=== PATIENT | male | born 1935 | race Caucasian/White ===

== ENCOUNTER → 2016-07-15 | Outpatient (CLI) | payer OTHER ==
[~2016-07-15] MED LIST: ALOE VERA5000 MG PO; ASPIRIN81 M2 PO; ATORVASTATIN CA20 MG PO; BILBERRY100 MG PO; CYANOCOBALAM1000 MCG PO; FUROSEMIDE40 MG PO; KLOR-CON M2020 MEQ PO; LASIX20 MG PO; LASIX40 MG PO; LEVAQUIN750 MG PO; LISINOPRIL20 MG PO; LOPRESSOR25 MG PO; MIRALAX255 GM PO; PLAVIX75 MG PO; ROXICODONE5 MG PO; SAW PALMETTO160 MG PO; TYLENOL EXTRA500 MG PO; ZITHROMAX250 MG PO
== END | disposition home or self-care (01) ==
LOC: RAD 10:51 → EDSTATUS 12:00 → RAD 12:00
PROC: 0W9B3ZZ Drainage of Left Pleural Cavity, Percutaneous Approach (ICD-10-PCS; principal; 2016-07-15)
DX: J90 Pleural effusion, not elsewhere classified (principal)

== ENCOUNTER 2016-07-25 04:22 | Emergency (ER) | payer OTHER ==
[~2016-07-25] VITALS: Ht 177.8 cm; Wt 100.9 kg
[~2016-07-25 04:22] MED LIST changes: -LASIX40 MG PO
[2016-07-25 05:29] LABS: CHLORIDE 103 mEq/L (99-109); POTASSIUM 4.2 mEq/L (3.7-5.4); SODIUM 137 mEq/L (136-147)
[2016-07-25 05:30] LABS: GLUCOSE 102 mg/dL (70-99)
[2016-07-25 05:32] LABS: ANION GAP 10 MEQ/L (2-14)
[2016-07-25 05:34] LABS: GFR ESTIMATE (CALCULATED) > 59 mL/min/
[2016-07-25 05:35] LABS: UREA NITROGEN (BUN) 20 mg/dL (9-23)
[2016-07-25 05:36] LABS: HEMATOCRIT 33.1 % (38.0-50.0); MCH 27.9 PG (29.0-34.0); MCHC 32.3 G/DL (30.0-36.0); MCV 86.4 FL (86-99); RBC DIS.WIDTH-CV 14.5 % (11.8-14.6); RBC DIS.WIDTH-SD 44.5 % (39-53); RED BLOOD COUNT 3.83 M/uL (4.00-5.50)
[2016-07-25 06:40] LABS: HEMATOLOGY COMMENT 1 REV; MEAN PLAT.VOLUME 10.3 uM^3 (9.0-12.4)
[2016-07-25 07:05] LABS: PLATELET COUNT 296 K/uL (156-360)
[2016-07-25 09:10] LABS: TROP-I INTERPRETATION NEGATIVE; TROPONIN-I < 0.01 ng/mL (0.0-0.30)
[2016-07-25] MEDS ORDERED: LASIX40 MG PO (12:16)
[2016-07-25 12:34] VITALS: BP 154/69
== END 2016-07-25 12:35 | disposition home or self-care (01) ==
LOC: EME 04:22
PROVIDERS: Emergency Medicine
DX: I50.9 Heart failure, unspecified (principal); R60.0 Localized edema; I10 Essential (primary) hypertension; I25.2 Old myocardial infarction; Z95.1 Presence of aortocoronary bypass graft; Z87.891 Personal history of nicotine dependence
CPT/HCPCS: 71020; 71275; 80048; 83880; 84484; 85027; 93005; 93971; 99281; 99285